=== PATIENT | male | born 1980 | race Caucasian/White ===

== ENCOUNTER 2023-09-26 12:09 | Emergency (ER) | payer OTHER, SELFPAY ==
[2023-09-26] VITALS (54 sets, daily range): BP systolic 100–165; BP diastolic 54–84; PULSE 62–112; RESP 14–20; O2SAT 93–98
--- NOTE | 2023-09-26 12:15 | DI.RAD_ITS ---
Exam(s) XR PELVIS AP XR FEMUR RT EXAM: XR FEMUR RT CLINICAL HISTORY: pain s/p fall. TECHNIQUE: 2D digital imaging was performed. AP and lateral views. COMPARISON: CR,XR XR PELVIS AP from 09/26/2023 FINDINGS: BONES: There is a fracture of the femoral neck with mild displacement as well as impaction. No addit ional fractures seen in the pelvis or distally in the femur. No bony destructive lesion is seen. JOINTS: Visualized portion of knee and hip joints are unremarkable. SOFT TISSUE: Normal. IMPRESSION: Femoral neck fracture. DATA REPOSITORY: RADIATION DOSE DELIVERED:
--- NOTE | 2023-09-26 12:26 | W.ED.GENAD ---
Discharge Plan Disposition Specific Critical Access Facility: Other Other Facility: [facility] Condition: Stable Discharge Details Chief Complaint: Trauma Clinical Impression: Fracture of right hip Primary Care Provider: Unknown,Unknown ED Provider: Jayden Neil Home Meds and New Rx's Prescriptions: No Action omeprazole 10 mg capsule,delayed release(DR/EC) 10 mg PO DAILY Medical Decision Making 43 yo male who has eosinophilic esophagitis and no other chronic medical problems comes in with chief complaint of right hip pain. He was skiing and wearing a helmet and had just come to a stop and then fell over landing on his right hip and couldn't get up due to the pain so ems was called. He is caox4 on arrival speaking clearly. He has no headache or neck pain and has no midline tenderness and no pain with full rom so c collar was removed. He localizes the pain to the righ tlateral hip and proximal femur, normal distal sensation in the leg, no pain in the knee, or lower leg. suspect fracture vs contusion, will proceed with xrays. Denies preceding symptoms so do not feel presyncope/syncope workup indicated. pt stable, has a right femoral neck fracture, discussed with Dr. 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 Zi Sneed, awaiting call that the bed is available. Differential Diagnosis Differential Diagnosis: contusion, fracture, sprain Imaging Data Radiologic Study: Attestation: I personally reviewed and interpreted this imaging study as follows: Imaging: X-Ray Radiologist's impression: PROCEDURE INFORMATION: Exam: XR Right Femur Exam date and time: 09/26/2023 1:21 PM Age: 43 years old Clinical indication: Condition or disease; Other: Fall, pain TECHNIQUE: Imaging protocol: Radiologic exam of the right femur. Views: 2 views. COMPARISON: CR XR PELVIS AP 09/26/2023 1:19 PM FINDINGS: Bones/joints: Acute fracture involves the right femoral neck with extension into the intertrochanteric region. There is very minimal displacement. Femoral head remains within the acetabulum. Distal right femur appears intact. Soft tissues: Unremarkable. IMPRESSION: Acute right femoral neck fracture. Radiologic Study #2: Attestation: I personally reviewed and interpreted this imaging study as follows: Imaging: X-Ray Radiologist's impression: PROCEDURE INFORMATION: Exam: XR Pelvis Exam date and time: 09/26/2023 1:19 PM Age: 43 years old Clinical indication: Other: Fall pain TECHNIQUE: Imaging protocol: Radiologic exam of the pelvis. Views: 1 or 2 view. COMPARISON: No relevant prior studies available. FINDINGS: Bones/joints: There is a fracture of the right femoral neck, extending into the intertrochanteric region. On this single AP view, it does not appear significantly displaced. Femoral head remains within the acetabulum. No obvious acute fracture deformity involving pelvic bones. Soft tissues: Unremarkable. IMPRESSION: Acute fracture right femoral neck HPI General Mode of arrival: EMS. Date/Time Provider Initiated Documentation: 09/26/23 12:19. Limitations to Documentation: no limitations. Information obtained by: patient. History of Present Illness 43 year old M presents to the emergency department with the chief complaint of right hip pain, described as moderate, Patient started experiencing this hour(s) (1) and it has been constant. No relieving factors improve symptom(s), No exacerbating factors reported . Patient notes no other symptoms.. Patient did receive the following treatments prior to arrival, none Related Data Home Medications Medication Instructions Recorded Confirmed omeprazole 10 mg capsule,delayed 10 mg PO DAILY 09/26/23 09/26/23 release Allergies Allergy/AdvReac Type Severity Reaction Status Date / Time No Known Allergies Allergy Unverified 09/26/23 12:14 General Stated Complaint: Trauma KULDIP: 3 Review of Systems All systems reviewed & are unremarkable except as noted in HPI and below Constitutional Constitutional: Denies chills, Denies fever(s) and Denies weakness Eyes Eyes: Denies loss of vision Cardiovascular Cardiovascular: Denies chest pain and Denies dyspnea Respiratory Respiratory: Denies cough and Denies dyspnea Gastrointestinal Gastrointestinal: Denies abdominal pain, Denies nausea and Denies vomiting Musculoskeletal Musculoskeletal: Denies joint swelling Neurologic Neurologic: Denies loss of vision and Denies weakness PFSH All Active Problems (Updated 09/26/23 @ 17:37 by Jayden Neil MD) Fracture of right hip (Acute) Social History Smoking risk assessment performed?: No Alcohol Intake: never Drug use: Never Substance use type: does not use Housing: house Do you feel safe at home: Yes Do you feel safe in your relationship?: Yes Exam Const General: no acute distress Orientation: alert HENIA Head: normal to inspection Ears: external ears normal General nose exam: external nose normal Mouth: moist mucous membranes Eyes General: appearance normal, both eyes and all related structures Neck Neck: normal visual inspection, full ROM, trachea midline and nontender Resp Effort & Inspection: normal respiratory effort and able to speak in complete sentences Cardio Rate: regular rate Skin General skin exam: no rashes or lesions noted Neuro General: patient alert and patient oriented x3 Extrem General: normal to inspection Psych Mental Status: mental status grossly normal Course Vital Signs Vital signs: Vital Signs Pulse 74 09/26/23 12:10 Respiratory Rate 20 09/26/23 12:10 Blood Pressure 165/81 H 09/26/23 12:10 Pulse Oximetry 98 09/26/23 12:10 Pulse 74 09/26/23 12:10 Respiratory Rate 20 09/26/23 12:10 Blood Pressure 165/81 H 09/26/23 12:10 Blood Pressure Position Supine 09/26/23 12:10 Pulse Oximetry 98 09/26/23 12:10
[2023-09-26] MEDS: Ibuprofen 600 MG TAB PO (12:36)
[2023-09-26] MEDS: MORPHine 10 MG/ML VIAL 6 MG IVP (12:44)
--- NOTE | 2023-09-26 14:01 | DI.VRAD_ITS ---
PROCEDURE INFORMATION: Exam: XR Pelvis Exam date and time: 09/26/2023 1:19 PM Age: 43 years old Clinical indication: Other: Fall pain TECHNIQUE: Imaging protocol: Radiologic exam of the pelvis. Views: 1 or 2 view. COMPARISON: No relevant prior studies available. FINDINGS: Bones/joints: There is a fracture of the right femoral neck, extending into the intertrochanteric region. On this single AP view, it does not appear significantly displaced. Femoral head remains within the acetabulum. No obvious acute fracture deformity involving pelvic bones. Soft tissues: Unremarkable. IMPRESSION: Acute fracture right femoral neck. Dictated and Authenticated by: Berlin Saleem MD. Ordering:CARMEN Carpenter MD
--- NOTE | 2023-09-26 14:03 | DI.VRAD_ITS ---
PROCEDURE INFORMATION: Exam: XR Right Femur Exam date and time: 09/26/2023 1:21 PM Age: 43 years old Clinical indication: Condition or disease; Other: Fall, pain TECHNIQUE: Imaging protocol: Radiologic exam of the right femur. Views: 2 views. COMPARISON: CR XR PELVIS AP 09/26/2023 1:19 PM FINDINGS: Bones/joints: Acute fracture involves the right femoral neck with extension into the intertrochanteric region. There is very minimal displacement. Femoral head remains within the acetabulum. Distal right femur appears intact. Soft tissues: Unremarkable. IMPRESSION: Acute right femoral neck fracture. Dictated and Authenticated by: Berlin Saleem MD. Ordering:CARMEN Carpenter MD
== END 2023-09-26 17:40 | disposition short-term general hospital (02) ==
PROVIDERS: Emergency Provider Emergency Medicine
DX: S72.001A Fracture of unspecified part of neck of right femur, initial encounter for closed fracture (principal); V00.321A Fall from snow-skis, initial encounter
CPT/HCPCS: 73552; 96374; 96376; 99285; 72170; J2270